=== PATIENT | female | born 1935 | race Caucasian/White ===

== ENCOUNTER 2021-04-15 14:57 | Outpatient (CLI) | payer MEDICARE, OTHER ==
--- NOTE | 2021-04-15 16:24 | XRAY Report ---
PROCEDURE: Lumbar Spine 2 View INDICATIONS: LOW BACK PX TECHNIQUE: 2 views of the lumbar spine were acquired. COMPARISON: None. FINDINGS: Bones: 5 bey-qoe-woktywa vertebrae are present. There is moderate rightward curvature of the upper lumbar spine. Multilevel disc space narrowing and endplate osteophyte formation. Multilevel facet hyp ertrophy throughout the mid and lower lumbar spine. Lower thoracic and upper lumbar spine not well se en. No vertebral body compression fractures. No suspicious bony lesions. Soft tissues: Overlying bowel gas pattern is normal. No suspicious soft tissue calcifications. IMPRESSION: Limited examination demonstrating multilevel degenerative disc and facet disease. No acu te fracture. No osseous lesion. If symptoms and/or clinical suspicion for pathology continue, further assessment with repeat plain films, or advanced imaging (e.g., CT, MRI, or bone scan) is recommended for further assessment. Reviewed by: Sen Rodrigez MD on 04/15/2021 4:23 PM PDT Approved by: Sen Rodrigez MD on 04/15/2021 4:23 PM PDT Station ID: [id number]
--- NOTE | 2021-04-15 16:25 | XRAY Report ---
PROCEDURE: Thoracic Spine 2 View INDICATIONS: THORACIC BACK PX TECHNIQUE: 3 views of the thoracic spine were acquired. COMPARISON: None. FINDINGS: Bones: No acute compression fracture or spondylolisthesis. Mild to moderate rightward curvature of th oracolumbar junction is seen centered at T12-L1 level. Degenerative endplate changes and bilateral fa cet arthrosis throughout mid to lower thoracic spine is seen. No suspicious bony lesions. 12 pairs o f ribs are noted, and appear intact where visualized. Soft tissues: No paravertebral stripe thickening. IMPRESSION: Degenerative disc disease throughout thoracic spine. No acute compression fracture or spondylolisthes is. Scoliosis as above. Reviewed by: Francisco Aragon MD on 04/15/2021 4:24 PM PDT Approved by: Francisco Aragon MD on 04/15/2021 4:24 PM PDT Station ID: [id number]
== END 2021-04-15 14:58 | disposition home or self-care (01) ==
LOC: DI.N 14:57
PROVIDERS: ATTEND Physician Assistant
DX: M54.5 Low back pain (principal); M51.36 Other intervertebral disc degeneration, lumbar region; M51.34 Other intervertebral disc degeneration, thoracic region

== ENCOUNTER 2021-04-16 11:15 | Outpatient (CLI) | payer MEDICARE, OTHER | END 2021-04-16 11:16 | disposition home or self-care (01) | LOC: EMS 11:15 | DX: R07.81 Pleurodynia (principal); M54.5 Low back pain | CPT/HCPCS: A0425; A0429 ==

== ENCOUNTER 2021-04-16 11:35 | Emergency (ER) | payer MEDICARE, OTHER ==
--- NOTE | 2021-04-16 12:08 | ED Physician Documentation ---
History of Present Illness - Stated complaint Stated Complaint: WEAKNESS - Chief complaint Chief Complaint: Neuro - Additonal information Additional information: 86-year-old female comes to the emergency department for evaluation of increased low back pain and weakness resulting in inability to ambulate with her walker. She had an unwitnessed fall at [facility] on or about April 06. She did fall again the subsequent day. Due to history of atrial fibrillation and previous stroke she is anticoagulated on Eliquis but care was not sought at that time. However due to increasing low back pain she did see primary care provider yesterday and thoracic and lumbar imaging was ordered. That imaging shows significant degenerative disc disease within the thoracic and lumbar spine but no acute fracture. Patient's daughter who is her DPOA reports that the pain has resulted now in her mom being bedbound. She would like to determine if there are any fractures. 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 She did have a fall in 2018 that resulted in a pelvic fracture. 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 Review of Systems Unable to obtain: Dementia, Other (history obtained from daughter) Eyes: reports: Loss of vision (cataracts/lens implants (left eye)) Ears: reports: Loss of hearing Cardiac: reports: Reviewed and negative Respiratory: reports: Reviewed and negative GI: reports: Reviewed and negative : reports: Incontinent (voids in briefs) Skin: denies: Lesions Musculoskeletal: reports: Back pain Neurologic: reports: Focal weakness (left side (mild)) PD PAST MEDICAL HISTORY - Present Medications Home Medications: Ambulatory Orders Medication Instructions Recorded Confirmed Acetaminophen [Acetaminophen Extra 500 mg PO BID 04/16/21 04/16/21 Strength] Amantadine HCl [Amantadine] 100 mg PO BID 04/16/21 04/16/21 Apixaban [Eliquis] 2.5 mg PO BID 04/16/21 04/16/21 Atorvastatin Calcium 40 mg PO HS 04/16/21 04/16/21 Brinzolamide 1% Ophth Drops [Azopt 1 drops EACHEYE BID 04/16/21 04/16/21 1% Ophth Drops] Clotrimazole 1% Cream [Lotrimin 1% 1 applic TOP BID 04/16/21 04/16/21 Cream] Donepezil [Aricept] 10 mg PO HS 04/16/21 04/16/21 Famotidine [Pepcid] 40 mg PO BID 04/16/21 04/16/21 Latanoprost 0.005% Ophth Drops 1 drops EACHEYE HS 04/16/21 04/16/21 [Xalatan Ophth Drops] Levetiracetam [Keppra] 500 mg PO BID 04/16/21 04/16/21 Levothyroxine Sodium 112 mcg PO DAILY 04/16/21 04/16/21 [Levothyroxine] Pilocarpine 1% Ophth Drops [Isopto 1 drops EACHEYE TID 04/16/21 04/16/21 Carpine 1% Ophth Drops] QUEtiapine [SEROquel] 25 mg PO DAILY 04/16/21 04/16/21 Sertraline [Zoloft] 25 mg PO DAILY 04/16/21 04/16/21 Tolterodine Tartrate [Detrol LA] 4 mg PO HS 04/16/21 04/16/21 oxyCODONE [Roxicodone] 5 mg PO BID PRN #15 tablet 04/16/21 polyethylene glycoL 3350 [Miralax] 17 gm PO DAILY PRN #1 bottle 04/16/21 - Allergies Allergies/Adverse Reactions: Allergies Allergy/AdvReac Type Severity Reaction Status Date / Time amiodarone Allergy Unknown Verified 04/16/21 11:42 PD ED PE EXPANDED - General General: Alert, No acute distress, Well developed/nourished - Cardiac Cardiac: Regular Rate, Murmur Present, Normal pulses, Radial strong equal, Pedal strong equal, Cap refill < 2 sec - Respiratory Respiratory: Clear to ausultation torsten. No: Distress, Labored - Abdomen Abdomen: Normal Bowel sounds. No: Tender to palpation - Back Back: Soft tissue tenderness (No midline cervical thoracic or lumbar tenderness elicited. No crepitus step-off or deformities. Lower lumbar paraspinous tenderness across the lower back.). No: Vertebral tenderness - Extremities Extremities: Normal, Right hip (Full active range of motion and passive range of motion without tenderness elicited), Left hip (Full active and passive range of motion without tenderness elicited), Pedal Pulses Present, Other (left leg wak in comparrison to the right; this is a baseline deficit since her stroke). No: Deformity, Tenderness, Right calf TTP/cord, Left calf TTP/cord - Neuro Neuro: Confused, Dyscongugate gaze (Lens present in the left eye. Eye movements appear normal otherwise), Normal speech (Mild confusion), Other (Motor strength 5 of 5 bilateral upper extremities to push and pull. Reduced motor strength bilateral lower extremities for 5 against resistance). No: Normal gait - GCS Eye Opening: Spontaneous Motor: Obeys Commands Verbal: Confused Total: 14 Results - Vitals Vitals: Vital Signs - 24 hr 04/16/21 04/16/21 04/16/21 11:40 12:14 13:05 Temperature 37.0 C Heart Rate 76 70 70 Respiratory 18 12 17 Rate Blood Pressure 153/66 H 158/68 H 158/68 H O2 Saturation 100 98 98 Oxygen O2 Source Room air - Labs Labs: Laboratory Tests 04/16/21 04/16/21 04/16/21 12:17 12:17 12:17 WBC 7.3 RBC 4.61 Hgb 13.6 Hct 43.7 MCV 94.8 MCH 29.5 MCHC 31.1 L RDW 13.4 Plt Count 334 MPV 9.4 Neut # (Auto) 4.5 Lymph # (Auto) 1.8 [place] # (Auto) 0.7 Eos # (Auto) 0.2 Baso # (Auto) 0.1 Absolute Nucleated RBC 0.00 Nucleated RBC % 0.0 Sodium 142 Potassium 3.3 L Chloride 108 Carbon Dioxide 23 Anion Gap 11.0 BUN 16 Creatinine 0.7 Estimated GFR (MDRD) 79 L Glucose 101 H Calcium 8.7 Total Bilirubin 1.0 AST 19 ALT 18 Alkaline Phosphatase 75 Total Protein 6.7 Albumin 3.8 Globulin 2.9 Albumin/Globulin Ratio 1.3 Lipase 22 TSH 4.87 Thyroxine (T4) 10.06 - Rads (name of study) CXR Radiology: Final report received (No significant pulmonary abnormality can be seen on supine study.) CT head Radiology: Final report received (No acute intracranial hemorrhage is seen. Areas of remote infarction are seen including the right THERMOMETER TESTER territory infarction. Age-appropriate right parenchymal volume loss) CT cervical spine Radiology: Final report received (No displaced fracture is identified. Advanced degenerative changes are seen.) Thoracic CT Radiology: Final report received (Negative for acute fracture. Remote T7 anterior wedge deformity. Degenerative changes are seen. Patchy infiltrates are seen. Please consider consider atypical infection) Lumbar CT Radiology: Final report received (No acute vertebral body compression fractures. No suspicious lytic lesions or blastic olman lesions. Multiple levels of prominent degenerative changes are seen.) PD MEDICAL DECISION MAKING - ED course Complexity details: reviewed results, re-evaluated patient, d/w patient, d/w family ED course: This is a very pleasant 86-year-old female who has a history of dementia, atrial fib is anticoagulated as well as a pacemaker in place with previous stroke and left-sided deficits that presents to the emergency department for increased low back pain after a ground-level fall that was unwitnessed about 10 days ago. She had been seen by primary care provider yesterday who ordered thoracic and lumbar imaging that was negative for acute fracture but despite a prescription of hydrocodone had been unable to get up out of bed. Because she is anticoagulated I did do extensive imaging. CT of the head showed no acute intracranial findings though remote infarct was seen and is consistent with her left-sided deficits. CT imaging of the cervical thoracic and lumbar spine shows no acute fractures though there is significant multilevel degenerative changes noted. Patient did have screening labs that showed no acute worrisome abnormalities today. She was given an oxycodone and was able to get out of bed with 2 person assist. Her daughter reports that this is the best improvement she has had since her fall nearly 2 weeks ago. Patient was seen by our aids social worker. Family will follow up with the primary care provider on Sunday and request referral to physical therapy. I will advised family to discontinue the use of the hydrocodone and I will prescribe a limited amount of oxycodone for as needed severe pain as well as MiraLAX to prevent constipation. I am prescribing a short course of short-acting opioid pain medication for this patient. I have reviewed the patients LYE TREATER and no concerning findings were noted. I have discussed that the opioids are for short term therapy only, and will not be refilled from the ED. Departure - Departure Disposition: 01 Home, Self Care Clinical Impression: Degenerative disc disease, cervical Low back pain Qualifiers: Chronicity: acute Back pain laterality: bilateral Sciatica presence: without sciatica Qualified Code(s): M54.5 - Low back pain Degenerative joint disease (DJD) of lumbar spine Qualifiers: Spinal osteoarthritis complication: unspecified spinal osteoarthritis Qualified Code(s): M47.816 - Spondylosis without myelopathy or radiculopathy, lumbar region Condition: Stable Record reviewed to determine appropriate education?: Yes Follow-Up: Luma Lyons PA [Primary Care Provider] - Prescriptions: polyethylene glycoL 3350 [Miralax] 17 gm PO DAILY PRN #1 bottle PRN Reason: Constipation oxyCODONE [Roxicodone] 5 mg PO BID PRN #15 tablet PRN Reason: Pain Comments: Betina was seen in the emergency department today for back pain and weakness after a fall About 10 days ago. Here in the emergency department we did do extensive imaging of her spine that did not show any acute fractures. However she does have multilevel degenerative disc disease. The CT of her head did not show any acute bleeds. We can see signs that she had an old stroke in the past. This is consistent with a left- sided deficits. Here in the emergency department screening labs showed no worrisome anemia or electrolyte deficiencies. Her thyroid levels were normal. Betina will benefit in the long-term from aggressive physical therapy to help maintain her mobility. However because she is at such increased risk for falls that she should not get out of bed without assistance. If she has any further falls she should return to the ER in order to ensure there is been no bruising or bleeding in her brain. In order to help with mobility I have prescribed oxycodone for pain control. This should be given about 1 hour prior to physical therapy or plans for activity. This is constipating so please make sure that she takes the MiraLAX if she fails to have a bowel movement every 24 hours. Discontinue any further use of hydrocodone. Please continue to follow-up with her primary care provider on Sunday And continue to take all other medications as previously prescribed I am prescribing a short course of narcotic pain medication for you. These are potentially dangerous and addictive medications that should be used carefully. These medications may constipate you. Take an joht-auu-ybqjtyn stool softener (docusate) twice daily with plenty of water while taking these medications. If you go 24 hours without a bowel movement, take qyss-dzz-zbmzszz miralax, per package instructions. Do not drink or drive while taking these medications. If you received narcotic or sedating medications while in the emergency department, do not drive for 24 hours. Store this medication in a safe, secure place and out of reach of children. It is a violation of federal law to give or sell this medication to another person or to use in a manner other than prescribed. The ED will not refill narcotic prescriptions, including prescriptions lost or stolen. To dispose of unwanted medications: 1. [facility] at [address] in [place] has a medication drop box. They accept prescription medications (in pill form) Sunday through Sunday 9:00 a.m. to 5:00 p.m. 2. The [facility] [employer] accepts prescription medications (in pill form only) for disposal year round. Call for more information. 3. Contact the [facility] for the next [facility] sponsored prescription drug collection event. , [phone], or [phone]; Note that many narcotic pain relievers also contain Tylenol/acetaminophen. Please ensure that your total dose of acetaminophen from all sources does not exceed 3 g (3000 mg) per day.
[2021-04-16 12:30] LABS: BASOPHILS # (AUTO) 0.1 10^3/uL (0.0-0.1); BASOPHILS % (AUTO) 1.2 %; EOSINOPHILS # (AUTO) 0.2 10^3/uL (0.0-0.7); EOSINOPHILS % (AUTO) 2.9 %; HCT - HEMATOCRIT 43.7 % (37.0-47.0); HGB - HEMOGLOBIN 13.6 g/dL (12.0-16.0); LYMPHOCYTES # (AUTO) 1.8 10^3/uL (1.5-3.5); MEAN CORPUSCULAR HEMOGLOBIN 29.5 pg (27.0-31.0); MEAN CORPUSCULAR HGB CONC 31.1 g/dL (32.0-36.0); MEAN CORPUSCULAR VOLUME 94.8 fL (81.0-99.0); MEAN PLATELET VOLUME 9.4 fL (7.9-10.8); MONOCYTES # (AUTO) 0.7 10^3/uL (0.0-1.0); MONOCYTES % (AUTO) 8.9 %; NEUTROPHILS # (AUTO) 4.5 10^3/uL (1.5-6.6); NEUTROPHILS % (AUTO) 61.9 %; PLT - PLATELET COUNT 334 10^3/uL (130-450); RED BLOOD COUNT 4.61 10^6/uL (4.20-5.40); RED CELL DISTRIBUTION WIDTH 13.4 % (12.0-15.0); WHITE BLOOD COUNT 7.3 x10^3/uL (4.8-10.8)
[2021-04-16 12:39] LABS: ALBUMIN 3.8 g/dL (3.2-5.5); ALBUMIN/GLOBULIN RATIO 1.3 (1.0-2.2); CALCIUM 8.7 mg/dL (8.5-10.3); CREATININE 0.7 mg/dL (0.4-1.0); POTASSIUM 3.3 mmol/L (3.5-5.0); TOTAL PROTEIN 6.7 g/dL (6.7-8.2)
[2021-04-16] MEDS ORDERED: oxyCODONE 5 MG TABLET PO STA (12:45)
[2021-04-16 12:51] LABS: T4 (THYROXINE) 10.06 ug/dL (6.09-12.23)
[2021-04-16 12:55] LABS: THYROID STIMULATING HORMONE 4.87 uIU/mL (0.34-5.60)
--- NOTE | 2021-04-16 12:56 | CT Report ---
PROCEDURE: CERVICAL SPINE WO INDICATIONS: GLF, increased weakness TECHNIQUE: Noncontrast 3 mm thick sections acquired from the skull base to the T4 level. Sagittal and coronal r eformats were then constructed. For radiation dose reduction, the following was used: automated exp osure control, adjustment of mA and/or kV according to patient size. COMPARISON: Correlation is made with the accompanying CT examinations. FINDINGS: Image quality: Excellent. Bones: No fractures or dislocations. Visualized superior ribs are intact. Degenerative changes are seen, with at least moderate disc space narrowing seen throughout the cervic al spine. There is a degree of fusion seen on the left at the C2-C3 level. Soft tissues: Prevertebral soft tissues are normal in thickness. No paravertebral hematomas. No ap ical pneumothoraces. Patchy infiltrates are partially seen within the visualized upper lobes, left w orse than right. Pacer leads are partially seen. Prominent atherosclerotic calcification is seen. IMPRESSION: No displaced fracture is identified. Advanced degenerative changes are seen. Patchy infiltrates partially seen within the visualized lungs. Incidental note is made of: Partial fusion of C2-C3 Pacer leads Reviewed by: Vic Melendrez MD on 04/16/2021 11:55 AM ORIANA Approved by: Vic Melendrez MD on 04/16/2021 11:55 AM ORIANA Station ID: [id number]
--- NOTE | 2021-04-16 12:59 | CT Report ---
PROCEDURE: HEAD WO INDICATIONS: GLF 10 days ago; anticoagulated TECHNIQUE: Noncontrast 4.5 mm thick angled axial sections acquired from the foramen magnum to the vertex. For r adiation dose reduction, the following was used: automated exposure control, adjustment of mA and/or kV according to patient size. COMPARISON: Correlation is made with the accompanying CT examinations. FINDINGS: Image quality: Excellent. CSF spaces: Basal cisterns are patent. No extra-axial fluid collections. Ventricles are normal in size and shape. Brain: There is a remote infarction seen involving the right posterior cerebral artery territory. La cunar infarcts are seen involving the basal ganglia, including involving the thalami on each side. A prior infarction can be seen involving the deep white matter of the right frontal lobe. No midline sh ift. No intracranial masses or hemorrhage. Hunter-white matter interface is normal. Skull and face: Calvarium and visualized facial bones are intact, without suspicious lesions. Sinuses: Visualized sinuses and mastoids are clear. IMPRESSION: No intracranial hemorrhage is seen. Areas of remote infarction are seen, including a right BOLT SAWYER territory infarction. Age-appropriate brain parenchymal volume loss and chronic small vessel ischemic change can be seen. Reviewed by: Vic Melendrez MD on 04/16/2021 11:57 AM ORIANA Approved by: Vic Melendrez MD on 04/16/2021 11:57 AM ORIANA Station ID: [id number]
--- NOTE | 2021-04-16 13:02 | CT Report ---
PROCEDURE: THORACIC SPINE WO INDICATIONS: back pain after fall TECHNIQUE: Noncontrast 3 mm thick sections acquired through the region of interest in the thoracic spine. Sagit abby and coronal reformats were then constructed. For radiation dose reduction, the following was used : automated exposure control, adjustment of mA and/or kV according to patient size. COMPARISON: Correlation is made with the accompanying chest radiograph as well as a complete CT exam inations, 04/25/2021. FINDINGS: Image quality: Excellent. Bones: No acute vertebral body compression fractures. There is a remote T7 anterior wedge deformity. No suspicious sclerotic or lytic bony lesions. Moderate dextroconvex thoracolumbar scoliotic curvature is seen. Underlying osteopenia is seen. Gener alized degenerative changes are seen. Soft tissues: No paravertebral masses or hematomas. Patchy bilateral interstitial type infiltrates a re seen, which are most prominent involving the left upper lobe. There is a trace left-sided pleural effusion. Pacer leads are seen. Atherosclerotic calcification is seen. IMPRESSION: Negative for acute fracture. Remote T7 anterior wedge deformity Degenerative changes are seen. Moderate dextroconvex cervical lumbar scoliosis. Patchy infiltrates are seen. Please consider atypical infection, including focal pneumonia. If clinic ally appropriate, please consider a follow-up noncontrast chest CT in 4-6 weeks for further evaluatio n. Incidental note is made of: Pacer leads Prominent atherosclerotic calcification Reviewed by: Vic Melendrez MD on 04/16/2021 12:01 PM ORIANA Approved by: Vic Melendrez MD on 04/16/2021 12:01 PM ORIANA Station ID: [id number]
--- NOTE | 2021-04-16 13:05 | CT Report ---
PROCEDURE: LUMBAR SPINE WO INDICATIONS: low back pain after fall TECHNIQUE: Noncontrast 3 mm thick sections acquired from the T12 level to the sacrum. Sagittal and coronal refo rmats were constructed. For radiation dose reduction, the following was used: automated exposure co ntrol, adjustment of mA and/or kV according to patient size. COMPARISON: Correlation is made with the accompanying CT examinations. FINDINGS: Image quality: Excellent. Bones: No acute vertebral body compression fractures. No suspicious lytic or blastic bony lesions. No pars defects. Age-appropriate osteopenia can be seen. Moderate dextroconvex thoracolumbar scoliosis is seen. There is minimal retrolisthesis seen at T12-L1 , L1-L2, and L2-L3. There is at least moderate disc space narrowing seen at T12-L1, L1-L2, and L2-L3. Bridging endplate osteophytes are seen, which are most prominent on the left from T12 through L3. At least moderate bilateral neuroforaminal narrowing can be seen inferiorly. Soft tissues: No retroperitoneal masses or hematomas. Visualized aorta is normal in caliber. Ather osclerotic calcification is seen. Mild renal atrophy can be seen on both sides. IMPRESSION: No acute fractures can be seen. Moderate dextroconvex thoracolumbar scoliosis. Multiple levels of relatively prominent degenerative change are seen. Incidental note is made of: Atelectatic calcification Mild bilateral renal atrophy Reviewed by: Vic Melendrez MD on 04/16/2021 12:04 PM ORIANA Approved by: Vic Melendrez MD on 04/16/2021 12:04 PM AKDT Station ID: [id number]
--- NOTE | 2021-04-16 13:07 | XRAY Report ---
PROCEDURE: Chest 1 View X-Ray INDICATIONS: chest pain TECHNIQUE: One view of the chest was acquired. COMPARISON: Correlation is made with the accompanying thoracic spine CT as well as the prior thoraci c spine plain films, 04/15/2021. FINDINGS: Surgical changes and devices: A left-sided pacer device is seen. Lungs and pleura: On the supine study, no large pneumothorax or large pleural effusions can be seen. No focal infiltrates are detected. Mediastinum: Mediastinal contours appear normal. Heart size is normal. Bones and chest wall: No suspicious bony lesions. Age-appropriate degenerative changes are seen. Overlying soft tissues appear unremarkable. IMPRESSION: No significant pulmonary abnormality can be seen on this supine study. On the complete CT examinations, patchy mild interstitial infiltrates are seen. Please consider follo w-up. Reviewed by: Vic Melendrez MD on 04/16/2021 12:06 PM ORIANA Approved by: Vic Melendrez MD on 04/16/2021 12:06 PM ORIANA Station ID: [id number]
[2021-04-16 16:00] VITALS: BP 148/69
== END 2021-04-16 16:22 | disposition home or self-care (01) ==
LOC: EDUNIT# → ED 11:35
DX: M47.816 Spondylosis without myelopathy or radiculopathy, lumbar region (principal); M51.36 Other intervertebral disc degeneration, lumbar region; M51.34 Other intervertebral disc degeneration, thoracic region; M50.30 Other cervical disc degeneration, unspecified cervical region; Z98.1 Arthrodesis status; M41.9 Scoliosis, unspecified; Z91.81 History of falling; I69.354 Hemiplegia and hemiparesis following cerebral infarction affecting left non-dominant side; I48.91 Unspecified atrial fibrillation; Z79.01 Long term (current) use of anticoagulants; G40.909 Epilepsy, unspecified, not intractable, without status epilepticus; Z95.0 Presence of cardiac pacemaker; E03.9 Hypothyroidism, unspecified
CPT/HCPCS: 36415; 70450; 71045; 72125; 72128; 72131; 80053; 83690; 84436; 84443; 85025; 99284; A9270

== ENCOUNTER 2021-04-16 16:23 | Outpatient (CLI) | payer MEDICARE, OTHER | END 2021-04-16 16:24 | disposition home or self-care (01) | LOC: EMS 16:23 | PROVIDERS: ATTEND Registered Nurse | DX: Z74.01 Bed confinement status (principal) | CPT/HCPCS: A0425; A0428 ==

== ENCOUNTER 2021-06-17 21:42 | Outpatient (CLI) | payer MEDICARE, OTHER | END 2021-06-17 21:43 | disposition critical access hospital (66) | LOC: EMS 21:42 | DX: S01.01XA Laceration without foreign body of scalp, initial encounter (principal); W01.0XXA Fall on same level from slipping, tripping and stumbling without subsequent striking against object, initial encounter; Y93.89 Activity, other specified; Y92.10 Unspecified residential institution as the place of occurrence of the external cause | CPT/HCPCS: A0425; A0429 ==

== ENCOUNTER 2021-06-17 21:59 | Emergency (ER) | payer MEDICARE, OTHER ==
--- NOTE | 2021-06-17 22:07 | ED Physician Documentation ---
PD HPI HEAD INJURY - Stated complaint Stated Complaint: GLF/ HEAD INJ - History obtained from History obtained from: Patient (limited due to dementia) - History of Present Illness Mechanism of head injury: Fell Where head injury occurred: Other ([place]) Timing - onset: Enter time (20:30), Today Pain level now: 0 Associated symptoms: No: LOC, AMS (baseline level of confusion, per teresitaer (in ED at bedside)) Contributing factors: Anticoagulated Recently seen: Not recently seen - Additional information Additional information: BIBA. unwitnessed fall; patient says she tripped although she is demented, making HPI/ROS unreliable (she also thinks she is vising from [place] and is returning there soon, which is incorrect per daughter at bedside). Head struck linoleum floor, presents with head laceration. She take eliquis for atrial fibrillation Review of Systems Unable to obtain: Dementia (limited/questionable reliability/accuracy) Cardiac: denies: Chest pain / pressure GI: denies: Vomiting Musculoskeletal: denies: Neck pain Neurologic: denies: Headache PD PAST MEDICAL HISTORY - Past Medical History Past Medical History: Yes Cardiovascular: High cholesterol, Atrial fibrillation - Present Medications Home Medications: Ambulatory Orders Medication Instructions Recorded Confirmed Acetaminophen [Acetaminophen Extra 500 mg PO BID 04/16/21 06/17/21 Strength] Amantadine HCl [Amantadine] 100 mg PO BID 04/16/21 06/17/21 Apixaban [Eliquis] 2.5 mg PO BID 04/16/21 06/17/21 Atorvastatin Calcium 40 mg PO HS 04/16/21 06/17/21 Brinzolamide 1% Ophth Drops [Azopt 1 drops EACHEYE BID 04/16/21 06/17/21 1% Ophth Drops] Donepezil [Aricept] 10 mg PO HS 04/16/21 06/17/21 Famotidine [Pepcid] 40 mg PO BID 04/16/21 06/17/21 Latanoprost 0.005% Ophth Drops 1 drops EACHEYE HS 04/16/21 06/17/21 [Xalatan Ophth Drops] Levetiracetam [Keppra] 500 mg PO BID 04/16/21 06/17/21 Levothyroxine Sodium 112 mcg PO DAILY 04/16/21 06/17/21 [Levothyroxine] Pilocarpine 1% Ophth Drops [Isopto 1 drops EACHEYE TID 04/16/21 06/17/21 Carpine 1% Ophth Drops] QUEtiapine [SEROquel] 25 mg PO DAILY 04/16/21 06/17/21 Sertraline [Zoloft] 25 mg PO DAILY 04/16/21 06/17/21 Tolterodine Tartrate [Detrol LA] 4 mg PO HS 04/16/21 06/17/21 oxyCODONE [Roxicodone] 5 mg PO BID PRN #15 tablet 04/16/21 06/17/21 polyethylene glycoL 3350 [Miralax] 17 gm PO DAILY PRN #1 bottle 04/16/21 06/17/21 Brimonidine 0.2% Ophth Drops 1 drops EACHEYE BID 06/17/21 06/17/21 [Alphagan P 0.2% Ophth Drops] Lactobacillus Acidophilus 1 tab PO DAILY 06/17/21 06/17/21 [Acidophilus] Melatonin 3 mg PO HS PRN 06/17/21 06/17/21 - Allergies Allergies/Adverse Reactions: Allergies Allergy/AdvReac Type Severity Reaction Status Date / Time amiodarone Allergy Unknown Verified 06/17/21 22:11 PD ED PE NORMAL - Vitals Vital signs reviewed: Yes - General General: No acute distress, Well developed/nourished (a), Other (awake, alert, pleasant, confused (oriented to self, knows she is in hospital but not which on e, states year is 1958)) - HEENT HEENT: EOMI - Neck Neck: No bony TTP - Respiratory Respiratory: No respiratory distress, Clear bilaterally - Abdomen Abdomen: Soft, Non tender - Back Back: No spinal TTP - Extremities Extremities: No deformity, No tenderness to palpate, Normal ROM s pain, No edema - Neuro Neuro: threading machine tender 2-12 intact, No motor deficit, No sensory deficit Eye Opening: Spontaneous Motor: Obeys Commands Verbal: Confused GCS Score: 14 PD ED PE EXPANDED - HEENT HEENT Visual: 1 - laceration (1 cm) - Cardiac Cardiac: Irregularly irregular Results - Vitals Vitals: Vital Signs - 24 hr 06/17/21 06/17/21 06/17/21 22:00 22:34 23:04 Temperature 36.1 C L 36.8 C Heart Rate 70 71 72 Respiratory 18 20 19 Rate Blood Pressure 133/67 H 124/53 L 128/81 H O2 Saturation 98 97 100 06/17/21 06/18/21 06/18/21 23:30 00:00 00:46 Temperature 36.6 C Heart Rate 70 75 73 Respiratory 22 19 18 Rate Blood Pressure 154/80 H 105/81 H 109/83 H O2 Saturation 100 98 100 Oxygen O2 Source Room air - Labs Labs: Laboratory Tests 06/17/21 06/17/21 22:07 22:07 WBC 10.3 RBC 4.27 Hgb 12.8 Hct 41.0 MCV 96.0 MCH 30.0 MCHC 31.2 L RDW 14.0 Plt Count 277 MPV 9.6 Neut # (Auto) 7.3 H Lymph # (Auto) 1.8 [place] # (Auto) 0.8 Eos # (Auto) 0.2 Baso # (Auto) 0.1 Absolute Nucleated RBC 0.00 Nucleated RBC % 0.0 Sodium 148 H Potassium 3.2 L Chloride 112 H Carbon Dioxide 21 Anion Gap 15.0 H BUN 14 Creatinine 0.9 Estimated GFR (MDRD) 59 L Glucose 126 H Calcium 9.0 - Rads (name of study) CT head Radiology: Prelim report reviewed, See rad report CT cervical spine Radiology: Prelim report reviewed, See rad report Procedures - Laceration (location) Scalp Posterior Length in cm: 1.5 Wound type: Linear, Into subcut fat, Clean Anesthesia: Lidocaine 1%, With bicarb Wound preparation: Chlorhexadine Skin layer closure: Cj (4) Other: Patient tolerated well, No complications PD MEDICAL DECISION MAKING - ED course Complexity details: reviewed results, re-evaluated patient, considered differential, d/w patient, d/w family ED course: no acute/emergent findings on CTH nor CT cervical spine. blood tests are without significant abnormalities. She is given tetanus booster IM and scalp laceration repaired with cj. Departure - Departure Disposition: 01 Home, Self Care Clinical Impression: Fall Qualifiers: Encounter type: initial encounter Qualified Code(s): W19.XXXA - Unspecified fall, initial encounter Scalp laceration Qualifiers: Encounter type: initial encounter Qualified Code(s): S01.01XA - Laceration without foreign body of scalp, initial encounter Condition: Good Instructions: ED Head Injury Closed Sleep Mon, ED Laceration Scalp Stitch Or Stap Follow-Up: Luma Lyons PA [Primary Care Provider] - (7-10 days for removal of cj ) Discharge Date/Time: 06/18/21 00:52
[2021-06-17 22:19] LABS: BASOPHILS # (AUTO) 0.1 10^3/uL (0.0-0.1); BASOPHILS % (AUTO) 0.9 %; EOSINOPHILS # (AUTO) 0.2 10^3/uL (0.0-0.7); EOSINOPHILS % (AUTO) 1.7 %; HGB - HEMOGLOBIN 12.8 g/dL (12.0-16.0); LYMPHOCYTES # (AUTO) 1.8 10^3/uL (1.5-3.5); LYMPHOCYTES % (AUTO) 17.4 %; MEAN CORPUSCULAR HGB CONC 31.2 g/dL (32.0-36.0); MEAN PLATELET VOLUME 9.6 fL (7.9-10.8); MONOCYTES # (AUTO) 0.8 10^3/uL (0.0-1.0); MONOCYTES % (AUTO) 8.1 %; NEUTROPHILS # (AUTO) 7.3 10^3/uL (1.5-6.6); NEUTROPHILS % (AUTO) 71.4 %; PLT - PLATELET COUNT 277 10^3/uL (130-450); RED BLOOD COUNT 4.27 10^6/uL (4.20-5.40); WHITE BLOOD COUNT 10.3 x10^3/uL (4.8-10.8)
[2021-06-17 22:20] LABS: CREATININE 0.9 mg/dL (0.4-1.0); POTASSIUM 3.2 mmol/L (3.5-5.0)
[2021-06-17] MEDS ORDERED: BUFFERED LIDOCAINE 10 ML SYRINGE SUBQ STA (23:42)
[2021-06-18] MEDS ORDERED: TETANUS/DIPHTHERIA/PERTUSSIS 0.5 ML SYRINGE IM ONE (00:36)
[2021-06-18 00:51] VITALS: BP 109/83
--- NOTE | 2021-06-18 11:59 | CT Report ---
PROCEDURE: CERVICAL SPINE WO INDICATIONS: fall, dementia TECHNIQUE: Noncontrast 3 mm thick sections acquired from the skull base to the T4 level. Sagittal and coronal r eformats were then constructed. For radiation dose reduction, the following was used: automated exp osure control, adjustment of mA and/or kV according to patient size. COMPARISON: 04/16/2021 FINDINGS: Image quality: Excellent. Bones: Vertebral body height and alignment is maintained. There is degenerative ankylosis of left C2- 3 facet joint. Disc space narrowing and left facet hypertrophy noted at C3-4, C4-5 and C5. Mild degen erative central stenosis noted at C2-3 Soft tissues: Prevertebral soft tissues are normal in thickness. No paravertebral hematomas. No ap ical pneumothoraces. In the left lung apex, nodular infiltrative density noted IMPRESSION: 1. No evidence of fracture or traumatic malalignment. 2. Multilevel degenerative disc disease and arthropathy, stable from the prior 3. Infiltrative density in the left lung apex has a nodular component. Consider follow-up dedicated C T chest. Note: Final report is concordant with preliminary report provided by [facility] Reviewed by: José Jerez MD on 06/18/2021 10:58 AM ORIANA Approved by: José Jerez MD on 06/18/2021 10:58 AM [email or web address] Station ID: [id number]
--- NOTE | 2021-06-18 12:02 | CT Report ---
PROCEDURE: HEAD WO INDICATIONS: fall, dementia, head injury, on eliquis TECHNIQUE: Noncontrast 4.5 mm thick angled axial sections acquired from the foramen magnum to the vertex. For r adiation dose reduction, the following was used: automated exposure control, adjustment of mA and/or kV according to patient size. COMPARISON: None. FINDINGS: Image quality: Excellent. CSF spaces: Basal cisterns are patent. No extra-axial fluid collections. Ventricles are normal in size and shape. Brain: No midline shift. No intracranial masses or hemorrhage. Hunter-white matter interface is norm al. Moderate atrophy and multifocal white matter chronic ischemic change. Sclerotic calcification of both cavernous portions of the ICA noted. 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 Skull and face: Calvarium and visualized facial bones are intact, without suspicious lesions. Lens replacements Sinuses: Visualized sinuses and mastoids are clear. IMPRESSION: Moderate atrophy and multifocal chronic ischemic change without acute hemorrhage or mass effect. 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 Note: Final report is concordant with preliminary report provided by [employer] Reviewed by: José Jerez MD on 06/18/2021 11:01 AM ORIANA Approved by: José Jerez MD on 06/18/2021 11:01 AM AKDT Station ID: [id number]
== END 2021-06-18 00:52 | disposition home or self-care (01) ==
LOC: EDUNIT# → ED 21:59 → SUPCPDRO 21:59 → ED 06-18 00:52
DX: S01.01XA Laceration without foreign body of scalp, initial encounter (principal); W18.30XA Fall on same level, unspecified, initial encounter; Y92.129 Unspecified place in nursing home as the place of occurrence of the external cause; I48.91 Unspecified atrial fibrillation; Z79.01 Long term (current) use of anticoagulants; F03.90 Unspecified dementia, unspecified severity, without behavioral disturbance, psychotic disturbance, mood disturbance, and anxiety; Z23 Encounter for immunization
CPT/HCPCS: 12001; 36415; 80048; 85025; 90471; 99282; 99284

== ENCOUNTER 2021-06-18 00:53 | Outpatient (CLI) | payer MEDICARE, OTHER | END 2021-06-18 00:54 | disposition home or self-care (01) | LOC: EMS 00:53 | DX: F03.90 Unspecified dementia, unspecified severity, without behavioral disturbance, psychotic disturbance, mood disturbance, and anxiety (principal); R41.0 Disorientation, unspecified | CPT/HCPCS: A0425; A0428 ==